=== PATIENT | female | born 1975 | race African-American/Black ===

== ENCOUNTER 2016-07-23 04:24 | Inpatient (IN) | payer MEDICAID, OTHER ==
[~2016-07-23] VITALS: Ht 160 cm; Wt 124.1 kg
[~2016-07-23 04:24] MED LIST: HYDR-3927
[2016-07-23] MEDS ORDERED: SODIUM CHLORIDE 0.9% 1,000 ML IV ONE (05:44)
[2016-07-23] MEDS ORDERED: MAGNESIUM/ALUMINUM HYDROXIDE/SIMETHICONE 30ML UDC PO STA (05:44)
[2016-07-23] MEDS ORDERED: ONDANSETRON HCL 4MG/2ML VIAL IM ONE (05:45)
[2016-07-23] MEDS ORDERED: MORPHINE SULFATE 10 MG/ML CPJ IM ONE (05:45)
[2016-07-23] MEDS ORDERED: FAMOTIDINE 20MG TABLET PO ONE (05:45)
[2016-07-23 06:23] LABS: HEMATOCRIT. 34.9 % (36.0-48.0); HEMOGLOBIN. 11.5 g/dL (12.0-16.0); MEAN CORPUSCULAR HEMOGLOBIN 26.9 pg (28.0-32.0); MEAN CORPUSCULAR VOLUME 81.9 fL (81.0-99.0); PLATELET 336 x1000/uL (130-400); RED BLOOD CELL COUNT 4.27 mill/uL (4.2-5.4)
[2016-07-23 06:34] LABS: HCG SCREEN NEGATIVE
[2016-07-23 06:37] LABS: CARBON DIOXIDE 27 mEq/L (21-32); CHLORIDE 102 mEq/L (98-107); ETHANOL BLOOD < 10 mg/dL; TROPONIN I < 0.02 ng/mL (0.00-0.04)
[2016-07-23 06:47] LABS: PLATELET ESTIMATE NORMAL
[2016-07-23 06:50] LABS: INR 1.1; PROTHROMBIN TIME 11.1 sec
[2016-07-23 07:15] LABS: CLARITY URINE CLEAR (CLEAR); COLOR URINE YELLOW (YELLOW); GLUCOSE URINE NEGATIVE (NEGATIVE); KETONES URINE NEGATIVE (NEGATIVE); LEUKOCYTE ESTERASE URINE NEGATIVE (NEGATIVE); NITRITE URINE NEGATIVE (NEGATIVE); OCCULT BLOOD URINE NEGATIVE (NEGATIVE); PROTEIN URINE NEGATIVE (NEGATIVE); SPECIFIC GRAVITY URINE 1.005 (1.005-1.030); UROBILINOGEN URINE 0.2 E.U./dL (0.2-1.0)
[2016-07-23 07:23] LABS: *AMPHETAMINES SCREEN URINE NEGATIVE (NEGATIVE); *BARBITURATES SCREEN URINE NEGATIVE (NEGATIVE); *BENZODIAZEPINES SCREEN URINE NEGATIVE (NEGATIVE); *COCAINE SCREEN URINE NEGATIVE (NEGATIVE); CANNABINOID URINE SCREEN NEGATIVE (NEGATIVE); METHADONE URINE SCREEN NEGATIVE (NEGATIVE); OPIATES URINE SCREEN NEGATIVE (NEGATIVE); PHENCYCLIDINE URINE SCREEN NEGATIVE (NEGATIVE)
[2016-07-23] MEDS ORDERED: MORPHINE SULFATE 4 MG/ML CPJ (NOT FOR IM USE) IV ONE (08:30)
[2016-07-23] MEDS ORDERED: PANTOPRAZOLE 80 MG in SODIUM CHLORIDE 0.9% 100 ML IV SCH ×2 (09:45→11:00)
[2016-07-23] MEDS ORDERED: PANTOPRAZOLE SODIUM 40 MG/VIAL IV ONE (09:45)
[2016-07-23] MEDS ORDERED: CLONIDINE 0.1MG TABLET PO PRN (11:00)
[2016-07-23] MEDS ORDERED: MAGNESIUM/ALUMINUM HYDROXIDE/SIMETHICONE 30ML UDC PO PRN (11:00)
[2016-07-23] MEDS ORDERED: IPRATROPIUM/ALBUTEROL 0.5-3(2.5)MG/3ML NEB INH PRN (11:00)
[2016-07-23] MEDS ORDERED: ACETAMINOPHEN 325MG TABLET PO PRN (11:00)
[2016-07-23 13:00] VITALS: BP 109/72
[2016-07-23] MEDS: HYDROCODONE/ACETAMINOPHEN 5/325MG TABLET PO PRN ×3 (13:11→23:07)
[2016-07-23 13:30] VITALS: BP 130/78
[2016-07-23] MEDS ORDERED: MORPHINE SULFATE 2 MG/ML CPJ (NOT FOR IM USE) IV PRN (13:30)
[2016-07-23] MEDS ORDERED: LORAZEPAM 1MG TABLET PO PRN (13:30)
[2016-07-23] MEDS ORDERED: LORA2VIA33 PO (13:40)
[2016-07-23 16:00] VITALS: BP 125/72
[2016-07-23 16:59] LABS: HEMOGLOBIN 10.3 g/dL (12.0-16.0)
[2016-07-23 17:13] LABS: CARBON DIOXIDE 26 mEq/L (21-32); CHLORIDE 106 mEq/L (98-107); CREATINE KINASE 55 IU/L (26-192); CREATINE KINASE MB FRACTION < 0.5 ng/mL (0.5-3.6); TROPONIN I < 0.02 ng/mL (0.00-0.04)
[2016-07-23] MEDS: SODIUM CHLORIDE 0.9% 1,000 ML IV SCH ×2 (19:49→23:19)
[2016-07-23 20:00] VITALS: BP 114/55
[2016-07-23] MEDS: MORPHINE SULFATE 2 MG/ML CPJ (NOT FOR IM USE) IV PRN (21:12)
[2016-07-23] MEDS: PANTOPRAZOLE 80 MG in SODIUM CHLORIDE 0.9% 100 ML IV SCH ×2 (21:30→23:55)
[2016-07-24] VITALS (7 sets, daily range): BP systolic 91–155; BP diastolic 40–81
[2016-07-24] MEDS: MORPHINE SULFATE 2 MG/ML CPJ (NOT FOR IM USE) IV PRN ×6 (00:26→23:26)
[2016-07-24 00:55] LABS: HEMATOCRIT 31.5 % (36.0-48.0); HEMOGLOBIN 10.5 g/dL (12.0-16.0)
[2016-07-24 01:07] LABS: CREATINE KINASE 57 IU/L (26-192); CREATINE KINASE MB FRACTION < 0.5 ng/mL (0.5-3.6); TROPONIN I < 0.02 ng/mL (0.00-0.04)
[2016-07-24 06:26] LABS: HEMATOCRIT 30.4 % (36.0-48.0); HEMOGLOBIN 9.9 g/dL (12.0-16.0)
[2016-07-24] MEDS: PANTOPRAZOLE 80 MG in SODIUM CHLORIDE 0.9% 100 ML IV SCH ×2 (08:16→17:30)
[2016-07-24] MEDS: SODIUM CHLORIDE 0.9% 1,000 ML IV SCH (10:56)
[2016-07-24] MEDS: ONDANSETRON HCL 4MG/2ML VIAL IV PRN (13:48)
[2016-07-24] MEDS ORDERED: SODIUM CHLORIDE 0.9% 10ML VIAL ONE (14:34)
[2016-07-24] MEDS ORDERED: SIMETHICONE 40 MG/0.6 ML 30ML ONE ×2 (14:34→17:55)
[2016-07-24] MEDS ORDERED: MIDAZOLAM HCL 5 MG/5 ML VIAL ONE (17:55)
[2016-07-24] MEDS ORDERED: FENTANYL CITRATE/PF 50MCG/ML 2ML VIAL ONE (17:55)
[2016-07-24] MEDS ORDERED: DIPHENHYDRAMINE 50MG/ML VIAL ONE (18:23)
[2016-07-24] MEDS ORDERED: DIPHENHYDRAMINE 50MG/ML VIAL IV PRN (18:30)
[2016-07-24] MEDS: HYDROCODONE/ACETAMINOPHEN 5/325MG TABLET PO PRN (21:35)
[2016-07-25] VITALS (10 sets, daily range): BP systolic 113–149; BP diastolic 61–85
[2016-07-25] MEDS: ONDANSETRON HCL 4MG/2ML VIAL IV PRN (01:11)
[2016-07-25] MEDS: HYDROCODONE/ACETAMINOPHEN 5/325MG TABLET PO PRN ×4 (01:34→20:18)
[2016-07-25] MEDS: MORPHINE SULFATE 2 MG/ML CPJ (NOT FOR IM USE) IV PRN ×4 (03:27→15:51)
[2016-07-25] MEDS ORDERED: LIP40 PO (15:23)
[2016-07-25] MEDS ORDERED: ACET-3161 PO ×4 (15:23→20:54)
[2016-07-25] MEDS ORDERED: METO-293 PO (20:48)
[2016-07-25] MEDS ORDERED: ATOR40TA70 PO ×2 (20:50→20:51)
== END 2016-07-25 21:40 | disposition home or self-care (01) | DRG 241 ==
LOC: ER 04:25 → 5EST 09:45
PROVIDERS: ADMIT Internal Medicine; ATTEND Internal Medicine
PROC: 02HV33Z Insertion of Infusion Device into Superior Vena Cava, Percutaneous Approach (ICD-10-PCS; 2016-07-23)
PROC: B5181ZA Fluoroscopy of Superior Vena Cava using Low Osmolar Contrast, Guidance (ICD-10-PCS; 2016-07-23)
PROC: B548ZZA Ultrasonography of Superior Vena Cava, Guidance (ICD-10-PCS; 2016-07-23)
PROC: 0DB68ZX Excision of Stomach, Via Natural or Artificial Opening Endoscopic, Diagnostic (ICD-10-PCS; principal; 2016-07-24 16:00)
DX: K29.71 Gastritis, unspecified, with bleeding (principal); K76.0 Fatty (change of) liver, not elsewhere classified; E66.9 Obesity, unspecified; D25.9 Leiomyoma of uterus, unspecified; K44.9 Diaphragmatic hernia without obstruction or gangrene; R07.89 Other chest pain; D64.9 Anemia, unspecified; Z80.0 Family history of malignant neoplasm of digestive organs; Z88.6 Allergy status to analgesic agent; Z88.8 Allergy status to other drugs, medicaments and biological substances; Z68.42 Body mass index [BMI] 45.0-49.9, adult; Z90.49 Acquired absence of other specified parts of digestive tract; Z91.041 Radiographic dye allergy status; Z79.899 Other long term (current) drug therapy; Z98.51 Tubal ligation status
CPT/HCPCS: 36415; 36556; 36569; 71010; 74176; 76937; 77001; 80048; 80053; 80061; 80305; 81003; 81025; 82550; 82553; 83690; 84443; 84484; 84703; 85014; 85018; 85025; 85610; 88305; 88312; 88313; 93005; 93970; 96372; 96374; 96375; 99291; A4216; C1725; C1769; C1893; C9113; G0482; J1200; J2250; J2270; J2405; J3010; J7030; J7050